=== PATIENT | male | born 1985 | race Caucasian/White ===

== ENCOUNTER 2025-03-19 09:43 | Emergency (ER) | payer MEDICAID, OTHER ==
[~2025-03-19] VITALS: Ht 175.3 cm; Wt 97.7 kg
[~2025-03-19 09:43] MED LIST: PARO-38 PO
[2025-03-19 10:01] VITALS: TEMP 97.7
[2025-03-19 10:37] LABS: PLATELET COUNT (AUTO) 303 K/uL (150-450); RED BLOOD CELL COUNT(AUTO) 5.45 MIL/uL (4.50-5.90); RED CELL DISTRIBUTION WIDTH 13.6 % (11.5-14.5); WHITE BLOOD COUNT (AUTO) 10.5 K/uL (4.5-11.0)
[2025-03-19 10:48] LABS: CALCIUM, TOTAL 9.0 mg/dL (8.8-10.5); CREATININE 1.08 mg/dL (0.60-1.30); GLOMERULAR FILTR. RATE CALC > 60 mL/min (>60); GLUCOSE,RANDOM 102 mg/dL (70-110); SODIUM SERUM 136 mmol/L (136-145); UREA NITROGEN, BLOOD 13 mg/dL (7-18)
[2025-03-19] MEDS: DIPHENOXYLATE/ATROP 2.5-0.025 MG TABLET PO ONE (10:53)
[2025-03-19] MEDS: ONDANSETRON HCL 4 MG/2 ML VIAL IVP ONE (10:53)
[2025-03-19] MEDS: SODIUM CHLORIDE 0.9% 1,000 ML IV ONE (10:53)
[2025-03-19] MEDS ORDERED: PARO30TA60 PO (11:15)
[2025-03-19] MEDS ORDERED: IBUP-2076 PO (11:15)
[2025-03-19] MEDS: POTASSIUM CHLORIDE 20 MEQ ER TABLET PO ONE (11:24)
[2025-03-19 12:23] VITALS: BP 122/80; PULSE 61; RESP 20; O2SAT 98
[2025-03-19] MEDS ORDERED: ONDA-104 PO (13:23)
[2025-03-19] MEDS: SODIUM CHLORIDE 0.9% 500 ML IV ONE (13:30)
== END 2025-03-19 14:02 | disposition home or self-care (01) ==
LOC: EMS 09:43
DX: R19.7 Diarrhea, unspecified (principal); E86.0 Dehydration; F41.9 Anxiety disorder, unspecified; F12.90 Cannabis use, unspecified, uncomplicated; Z90.49 Acquired absence of other specified parts of digestive tract; Z79.899 Other long term (current) drug therapy
CPT/HCPCS: 99284; 96374; 96361; 80048; 85025; 36415; 93005; J2405; J7030; J7040